=== PATIENT | female | born 1985 | race Caucasian/White ===

== ENCOUNTER 2018-06-16 22:58 | Emergency (ER) | payer OTHER ==
[~2018-06-16] VITALS: Ht 157.5 cm; Wt 61.2 kg
[~2018-06-16 22:58] MED LIST: AMBIEN 10 MG TA10 MG PO; COMPAZINE10 MG PO; MACROBID 100 M100 M1 PO; MIRENA; NAPROSYN500 MG PO; NORCO 5-325 TA1 EACH PO; PRENATAL COMPL1 EACH PO; PROZAC 10 MG CA10 MG PO; XANAX XR1 MG PO
[2018-06-16] MEDS ORDERED: IRON325 PO (23:07)
[2018-06-16] MEDS ORDERED: CELEXA20 MG PO (23:07)
[2018-06-16] MEDS ORDERED: PRENATAL PO (23:07)
[2018-06-16 23:30] LABS: ABSOLUTE NEUTROPHILS 9.2 thou/uL (1.4-8.2); BASOPHILS 0.2 % (0.0-2.0); EOSINOPHILS 0.3 % (0.0-3.0); HEMATOCRIT 29.1 % (37.0-47.0); HEMOGLOBIN 10.2 gm/dL (12.0-15.0); LYMPHOCYTES 15.6 % (24.0-44.0); MCH 30.1 pg (26.0-34.0); MCHC 35.2 g/dL (28.0-37.0); MCV 85.6 fL (80.0-100.0); MONOCYTES 5.8 % (1.0-8.0); PLATELET COUNT 111 thou/uL (150-400); POLYS 78.1 % (36.0-66.0); RDW 13.4 % (10.5-14.5); WBC 11.8 thou/uL (4.0-11.0)
[2018-06-16 23:36] LABS: CALCIUM 8.9 mg/dL (8.5-10.1); CREATININE 0.7 mg/dL (0.6-1.0); POTASSIUM 3.5 mmol/L (3.5-5.1)
[2018-06-16 23:41] LABS: ALBUMIN 2.4 g/dL (3.4-5.0); TOTAL BILIRUBIN 0.2 mg/dL (<0.1-1.0)
[2018-06-16 23:47] VITALS: BP 121/74
[2018-06-16 23:47] LABS: URINE BILIRUBIN NEGATIVE (Negative); URINE BLOOD 2+ (Negative); URINE CLARITY CLEAR; URINE COLOR YELLOW; URINE GLUCOSE-RANDOM* NEGATIVE (Negative); URINE KETONES NEGATIVE (Negative); URINE NITRITE-REFLEX NEGATIVE (Negative); URINE PROTEIN (DIPSTICK) NEGATIVE (Negative); URINE SPECIFIC GRAVITY >= 1.030 (1.005-1.035); URINE UROBILINOGEN 0.2 E.U./dl (0.2-1.0)
[2018-06-16 23:50] LABS: URINE LEUKOCYTES-REFLEX TRACE (Negative)
[2018-06-16 23:55] LABS: BACTERIA-REFLEX 1-9 Few /HPF (None Seen); CASTS None Seen /LPF (None Seen); CRYSTALS None Seen /LPF (None Seen); MUCUS 0-3 Light strn/LPF (None Seen); SQUAMOUS 0-3 Few /LPF (0-3); URINE WBC-REFLEX 6-15 Few /HPF (0-5)
== END 2018-06-16 23:49 | disposition short-term general hospital (02) ==
LOC: ER 22:58
PROVIDERS: Emergency Medicine
DX: O26.893 Other specified pregnancy related conditions, third trimester (principal); Z3A.33 33 weeks gestation of pregnancy; R10.31 Right lower quadrant pain; F17.210 Nicotine dependence, cigarettes, uncomplicated

== ENCOUNTER 2019-08-02 23:41 | Emergency (ER) | payer OTHER ==
[~2019-08-02] VITALS: Ht 154.9 cm; Wt 45.4 kg
[~2019-08-02 23:41] MED LIST changes: +CELEXA20 MG PO; +IRON325 PO; +PRENATAL PO
[2019-08-02 23:42] VITALS: BP 130/90
== END 2019-08-03 00:50 | disposition home or self-care (01) ==
LOC: ER 23:41
DX: S50.11XA Contusion of right forearm, initial encounter (principal); M79.89 Other specified soft tissue disorders; F17.210 Nicotine dependence, cigarettes, uncomplicated; Z87.442 Personal history of urinary calculi; W01.0XXA Fall on same level from slipping, tripping and stumbling without subsequent striking against object, initial encounter; Y93.89 Activity, other specified; Y92.89 Other specified places as the place of occurrence of the external cause; Y99.8 Other external cause status